=== PATIENT | female | born 2000 | race Two or more races ===

== ENCOUNTER 2020-04-08 21:57 | Emergency (ER) | payer SELFPAY ==
[~2020-04-08] VITALS: Ht 152.4 cm; Wt 60.9 kg
[2020-04-08] MEDS ORDERED: METOCLOPRAMIDE HCL 10 MG/2 ML VIAL. IVP ONE (23:30)
[2020-04-08] MEDS ORDERED: diphenhydrAMINE 50 MG/ML VIAL IVP ONE (23:30)
[2020-04-08] MEDS ORDERED: IV NORMAL SALINE 1000ML BAG 1,000 ML IV ONE (23:30)
[2020-04-08] MEDS ORDERED: DEXAMETHASONE SOD PHOS 4 MG/ML VIAL IVP ONE (23:30)
[2020-04-08] MEDS ORDERED: KETOROLAC 15 MG/ML VIAL. IVP ONE (23:30)
[2020-04-09 00:28] VITALS: BP 100/59
--- NOTE | 2020-04-09 00:56 | PHYS DOC ---
Past Medical History Past Medical History: No Pertinent History (ELENI MONTERO APRN) Past Surgical History: No Surgical History (ELENI MONTERO APRN) Smoking Status: Never Smoker Alcohol Use: None Drug Use: None (ELENI MONTERO APRN) General Adult EDM: Chief Complaint: MENSTRUAL PAIN/CRAMPS HPI: HPI: Patient is a 19 year old female who presents to the emergency department via EMS with complaints of a headache since this morning and not feeling right after taking 4 zyxa-cge-uyoxmif tablets of a menstrual relief medication. Patient reports that she started her menstrual cycle today and that she usually has problems with headaches when her menstrual cycle starts. She denies any fever, body aches, fatigue, sore throat, ear pain, nausea, vomiting, diarrhea, abdominal pain, vision changes, sensitivity to light, anxiety, or weakness. Patient states she began to breathe fast and then her hands felt like they were crampy after she started to hyperventilate. She reports that those symptoms have improved since she has arrived to the emergency department. She currently rates her pain as a 7 out of 10 on the pain scale and reports that is located behind both of her eyes. Patient denies any irregular vaginal discharge or increased heaviness of menstrual flow. She reports that her menstrual cycles have been more painful than usual recently. She denies any medical or surgical history. The [employer] communication line was used to talk with the patient and she is O[place]i-speaking only (ELENI MONTERO APRN) Review of Systems: Review of Systems: Constitutional: Denies fever or chills. [] Eyes: See HENT: Denies nasal congestion or sore throat. [] Respiratory: Denies cough or shortness of breath. [] Cardiovascular: Denies chest pain or edema. [] GI: Denies nausea, vomiting, or diarrhea. [] : Denies dysuria; see HPI. [] Musculoskeletal: See HPI Integument: Denies rash. [] Neurologic: Denies focal weakness or sensory changes;; see HPI Lymphatic: Denies swollen glands. [] Psychiatric: Denies depression or anxiety. [] (ELENI MONTERO APRN) Heart Score: Risk Factors: Risk Factors: DM, Current or recent (<one month) smoker, HTN, HLP, family history of CAD, obesity. Risk Scores: Score 0 - 3: 2.5% MACE over next 6 weeks - Discharge Home Score 4 - 6: 20.3% MACE over next 6 weeks - Admit for Clinical Observation Score 7 - 10: 72.7% MACE over next 6 weeks - Early Invasive Strategies (ELENI MONTERO APRN) Current Medications: Current Medications Medications (Trade) Dose Ordered Sig/Chris Start Time Stop Time Status Last Admin Dose Admin Dexamethasone Sodium Phosphate (Decadron) 10 mg 1X ONCE 04/08/20 23:30 04/08/20 23:31 DC 04/08/20 23:38 10 MG Diphenhydramine HCl (Benadryl) 25 mg 1X ONCE 04/08/20 23:30 04/08/20 23:31 DC 04/08/20 23:38 25 MG Ketorolac Tromethamine (Toradol 15mg Vial) 15 mg 1X ONCE 04/08/20 23:30 04/08/20 23:31 DC 04/08/20 23:39 15 MG Metoclopramide HCl (Reglan Vial) 10 mg 1X ONCE 04/08/20 23:30 04/08/20 23:31 DC 04/08/20 23:38 10 MG Sodium Chloride 1,000 ml @ 1,000 mls/hr 1X ONCE 04/08/20 23:30 04/09/20 00:29 DC 04/08/20 23:52 1,000 MLS/HR (ELENI MONTERO APRN) Allergies: Allergies: Allergies Coded Allergies Type Severity Reaction Last Updated Verified No Known Drug Allergies 04/08/20 No (ELENI MONTERO APRN) Physical Exam: PE: Constitutional: Well developed, well nourished, appears anxious, non-toxic appearance. [] HENT: Normocephalic, atraumatic, bilateral external ears normal, nose normal. [] Eyes: PERRLA, EOMI, conjunctiva normal, no discharge. [] Neck: Normal range of motion, no stridor. [] Cardiovascular:Heart rate regular rhythm Lungs & Thorax: Lungs clear throughout all magdaleno, respirations even and unlabored, no retractions, no respiratory distress Abdomen: soft, no tenderness Skin: Warm, dry, no erythema, no rash. [] Extremities: No cyanosis, ROM intact, no edema. [] Neurologic: Alert and oriented X 3, no focal deficits noted. [] Psychologic: Affect normal, judgement normal, mood normal. [] (ELENI MONTERO APRN) EKG: EKG: [] (ELENI MONTERO APRN) Radiology/Procedures: Radiology/Procedures: [] (ELENI MONTERO APRN) Course & Med Decision Making: Course & Med Decision Making Pertinent Labs and Imaging studies reviewed. (See chart for details) The patient is a 19-year-old female who presented to the emergency room with complaints of not feeling right after taking 4 kpdy-jhp-uxxlpig menstrual relief tablets this afternoon and having a headache all day. The patient was given a liter of normal saline, 15 mg of IV Toradol, 10 mg of IV Reglan, 25 mg of IV Benadryl, and 50 mg of IV Toradol. She reported feeling better after these medications. I advised the patient that the swzm-gbt-[id number] medication that she took is likely to be what caused her to not feel right. I encouraged the patient to follow-up with [facility] and provided Dr. Monet's information for further problems with symptoms of dysmenorrhea. The patient denied any pain or vision changes after the medications were given. Vital signs were stable. Written instructions were provided to the patient in both Ecuadorean and O[place]i. Patient verbalized an understanding of home care, medications, follow-up, and return to ED instructions and was in agreement with the plan of care. [] (ELENI MONTERO APRN) Dragon Disclaimer: Dragon Disclaimer: This electronic medical record was generated, in whole or in part, using a voice recognition dictation system. (ELENI MONTERO APRN) Departure Departure Impression: Primary Impression: Menstrual headache Qualified Codes: G43.829 - Menstrual migraine, not intractable, without status migrainosus Additional Impressions: Severe menstrual cramps Adverse effects of medication Qualified Codes: T50.905A - Adverse effect of unspecified drugs, medicaments and biological substances, initial encounter Disposition: HOME, SELF-CARE Condition: STABLE Referrals: ARIANA CASTELAN MD Patient Instructions: Dysmenorrhea, Deqm-je-Jykl, General Headache Without Cause, Sspq-vn-Grrp Additional Instructions: Stop taking the njzw-zsh-lhrjcog medication for painful periods. You can take Tylenol or ibuprofen as needed for cramps and headaches. Follow-up with [facility] if you continue to have problems with headaches around her menstrual cycle. Return to the emergency room if symptoms worsen. Justicifation of Admission Dx: Justifications for Admission: Justification of Admission Dx: N/A (ELENI MONTERO APRN) Attending Signature Attending Signature I have reviewed the PA/PURSE MAKER's note and plan of care. I was available for consultation as needed during the patient's visit in the emergency department. I agree with the clinical impression, plan, and disposition. (TORO PARTIDA DO) ELENI MONTERO APRN Apr 09, 2020 00:56 TORO PARTIDA DO Apr 09, 2020 03:02
== END 2020-04-09 01:41 | disposition home or self-care (01) ==
LOC: ER 21:57
DX: G43.829 Menstrual migraine, not intractable, without status migrainosus (principal); T50.995A Adverse effect of other drugs, medicaments and biological substances, initial encounter; Z79.899 Other long term (current) drug therapy; Y92.89 Other specified places as the place of occurrence of the external cause
CPT/HCPCS: 96374; 96375; 99285; J1100; J1200; J1885; J2765; J7030